=== PATIENT | female | born 1955 | race Caucasian/White ===

== ENCOUNTER 2017-12-30 13:09 | Outpatient (CLI) | payer OTHER ==
--- NOTE | 2017-12-30 15:20 | ULT ---
RIGHT LOWER EXTREMITY VENOUS DOPPLER ULTRASOUND EVALUATION: History: Right lower extremity pain. FINDINGS: Multiple longitudinal and transverse images of the right lower extremity venous system is obtained us ing a multihertz linear array transducer. Real-time, color flow, and spectral waveform doppler analys is demonstrates no evidence of acute or old clot seen in the right common femoral, superficial femora l, femoral profunda, popliteal, posterior tibial vein, post trifurcation veins, and right greater sap henous vein. IMPRESSION: No evidence of right lower extremity deep venous thrombosis. POS: JEAN[facility]ERRE
== END 2017-12-30 13:10 | disposition home or self-care (01) ==
LOC: BICULT 13:09
PROVIDERS: ATTEND Family Medicine
DX: M79.604 Pain in right leg (principal)

== ENCOUNTER 2018-07-06 10:15 | Outpatient (CLI) | payer OTHER ==
--- NOTE | 2018-07-06 11:20 | MMO ---
Bilateral MAMMO Bilat Screen [facility]. CLINICAL HISTORY: Patient is 62 years old and is seen for screening. The patient has no family history of breast cancer. The patient has no personal history of cancer. The patient has a history of right Excisional Biopsy in 1992 - benign. VIEWS: The views performed were: bilateral craniocaudal with tomosynthesis and bilateral mediolateral oblique with tomosynthesis. FILMS COMPARED: The present examination has been compared to prior imaging studies performed at [facility] on 05/18/2012, 06/01/2013, 06/01/2014, 06/07/2015 and 07/02/2016. MAMMOGRAM FINDINGS: There are scattered fibroglandular densities. There are no suspicious masses, suspicious calcifications, or new areas of architectural distortion. IMPRESSION: THERE IS NO MAMMOGRAPHIC EVIDENCE OF MALIGNANCY. A ROUTINE FOLLOW-UP MAMMOGRAM IN 1 YEAR IS RECOMMENDED. THE RESULTS OF THIS EXAM WERE SENT TO THE PATIENT. ACR BI-RADS Category 1 - Negative MAMMOGRAPHY NOTE: 1. A negative mammogram report should not delay a biopsy if a dominant of clinically suspicious mass is present. 2. Approximately 10% to 15% of breast cancers are not detected by mammography. 3. Adenosis and dense breasts may obscure an underlying neoplasm.
== END 2018-07-06 10:16 | disposition home or self-care (01) ==
LOC: BICMAMMO 10:15
PROVIDERS: ATTEND Family Medicine
DX: Z12.31 Encounter for screening mammogram for malignant neoplasm of breast (principal)
CPT/HCPCS: 77063; 77067